=== PATIENT | male | born 1960 | race Caucasian/White ===

== ENCOUNTER → 2017-07-29 | Outpatient (CLI) | payer BC ==
[~2017-07-29] MED LIST: ARTHROTEC 501 TABLET PO; ASPIR-LOW81 MG PO; CADUET 10/201 TABLET PO; CELEBREX200 MG PO; CENTRUM SILVER1 EAC3 PO; HYDROCODON-ACE1 EAC7 PO; LANTUS 3 M100 UNITS1 PO; METFORMIN HCL500 MG PO; MOEXIPRIL-HCTZ1 EAC1 PO; MOTRIN600 MG PO; PERCOCET 5/31 TABLET PO; PREVACID30 MG PO; VITAMIN B-1250 MC3 PO; WELCHOL PO; WELCHOL625 MG PO; ZOFRAN ODT4 MG PO; [UNRECOGNIZED DRUG - MIXTURE] PO
== END | disposition home or self-care (01) ==
LOC: CDC 09:04
DX: Z01.810 Encounter for preprocedural cardiovascular examination (principal); M67.442 Ganglion, left hand; M79.645 Pain in left finger(s); I49.8 Other specified cardiac arrhythmias
CPT/HCPCS: 93000